=== PATIENT | female | born 1960 | race Caucasian/White ===

== ENCOUNTER → 2016-11-10 | Outpatient (CLI) | payer BC ==
[~2016-11-10] MED LIST: CAL-CITRATE PL1 EACH PO; LEVOTHYROXINE100 MC1 PO; NORCO 325 MG-51 TA1 PO; PEPCID 20MG TAB20 MG PO
== END ==
LOC: MAMMO 14:59
DX: Z12.31 Encounter for screening mammogram for malignant neoplasm of breast (principal)
CPT/HCPCS: G0202

== ENCOUNTER → 2016-11-15 | Outpatient (CLI) | payer BC | LOC: LAB 07:59 | DX: Z01.419 Encounter for gynecological examination (general) (routine) without abnormal findings (principal); L71.8 Other rosacea; F33.2 Major depressive disorder, recurrent severe without psychotic features; E03.4 Atrophy of thyroid (acquired) ==

== ENCOUNTER 2016-11-29 06:31 | Emergency (ER) | payer BC ==
[~2016-11-29] VITALS: Ht 162.6 cm; Wt 88.6 kg
[2016-11-29] MEDS ORDERED: LEVOTHYROXINE100 MC1 PO (06:44)
[2016-11-29] MEDS ORDERED: CAL-CITRATE PL1 EACH PO (06:45)
[2016-11-29] MEDS ORDERED: PEPCID 20MG TAB20 MG PO (06:45)
[2016-11-29] MEDS ORDERED: NORCO 325 MG-51 TA1 PO (08:18)
[2016-11-29 08:32] VITALS: BP 115/71
== END 2016-11-29 08:30 | disposition home or self-care (01) ==
LOC: ED 06:31
DX: S96.212A Strain of intrinsic muscle and tendon at ankle and foot level, left foot, initial encounter (principal)

== ENCOUNTER → 2017-02-25 | Outpatient (CLI) | payer BC | LOC: LAB 07:52 | DX: E03.4 Atrophy of thyroid (acquired) (principal) ==

== ENCOUNTER → 2019-07-10 | Outpatient (CLI) | payer BC | LOC: RAD 08:31 | DX: S22.43XA Multiple fractures of ribs, bilateral, initial encounter for closed fracture (principal); W19.XXXA Unspecified fall, initial encounter ==

== ENCOUNTER → 2020-02-08 | Outpatient (CLI) | payer BC ==
[2020-02-08 11:28] LABS: POTASSIUM 4.3 mmol/L (3.5-5.1)
[2020-02-08 11:29] LABS: ALBUMIN 4.3 g/dL (3.5-5.0)
[2020-02-08 11:30] LABS: CALCIUM 9.7 mg/dL (8.3-10.5)
[2020-02-08 11:31] LABS: TOTAL PROTEIN 7.4 g/dL (6.4-8.3)
[2020-02-08 11:33] LABS: TOTAL BILIRUBIN 0.8 mg/dL (0.2-1.2)
[2020-02-08 11:44] LABS: EOS # 0.2 (0.04-0.40); HEMOGLOBIN 13.6 g/dL (12.5-16.0); LYMPH# 1.5 (1.50-4.00); MEAN CELL VOLUME 90 fl (78-100); MEAN CORPUSCULAR HEMOGLOBIN 29 pg (27-31); MEAN CORPUSCULAR HGB CONC 32 g/dL (33-37); MEAN PLATELET VOLUME 9.5 fl (7.4-10.4); MONO # 0.5 (0.20-0.80); NEU # 2.9 (1.40-6.50); PLATELET COUNT 285 K/mm3 (130-400); RED BLOOD COUNT 4.69 M/mm3 (4.10-5.30); RED CELL DISTRIBUTION WIDTH 13.6 % (11.5-14.5)
== END ==
LOC: LAB 11:06
PROVIDERS: Physician Assistant
DX: Z12.31 Encounter for screening mammogram for malignant neoplasm of breast (principal); Z13.820 Encounter for screening for osteoporosis; R22.1 Localized swelling, mass and lump, neck; E03.9 Hypothyroidism, unspecified; K21.9 Gastro-esophageal reflux disease without esophagitis; G47.33 Obstructive sleep apnea (adult) (pediatric)

== ENCOUNTER → 2020-02-13 | Outpatient (CLI) | payer BC | LOC: MAMMO 12:47 → RAD 13:00 → MAMMO 13:45 | DX: Z12.31 Encounter for screening mammogram for malignant neoplasm of breast (principal); Z13.220 Encounter for screening for lipoid disorders; E03.9 Hypothyroidism, unspecified; R22.1 Localized swelling, mass and lump, neck; K21.9 Gastro-esophageal reflux disease without esophagitis; G47.33 Obstructive sleep apnea (adult) (pediatric) ==

== ENCOUNTER → 2020-02-18 | Outpatient (CLI) | payer BC | LOC: RAD 07:08 | DX: E04.1 Nontoxic single thyroid nodule (principal) ==

== ENCOUNTER → 2020-11-25 | Outpatient (CLI) | payer BC ==
[2020-11-25 10:19] LABS: BASO # 0.02 (0.02-0.10); EOS # 0.11 (0.04-0.40); EOS % 2.4 % (1.0-5.0); HEMATOCRIT 39.9 % (37.0-47.0); HEMOGLOBIN 13.1 g/dL (12.5-16.0); LYMPH# 1.28 (1.50-4.00); MEAN CELL VOLUME 87 fl (78-100); MEAN CORPUSCULAR HEMOGLOBIN 29 pg (27-31); MEAN CORPUSCULAR HGB CONC 33 g/dL (33-37); MEAN PLATELET VOLUME 9.1 fl (7.4-10.4); MONO # 0.34 (0.20-0.80); NEU # 2.82 (1.40-6.50); PLATELET COUNT 247 K/mm3 (130-400); RED BLOOD COUNT 4.59 M/mm3 (4.10-5.30); RED CELL DISTRIBUTION WIDTH 12.9 % (11.5-14.5); WHITE BLOOD COUNT 4.6 K/mm3 (4.8-10.8)
[2020-11-25 10:27] LABS: POTASSIUM 4.2 mmol/L (3.5-5.1)
[2020-11-25 10:28] LABS: ALBUMIN 4.2 g/dL (3.5-5.0)
[2020-11-25 10:29] LABS: CALCIUM 9.6 mg/dL (8.3-10.5)
[2020-11-25 10:30] LABS: TOTAL PROTEIN 6.9 g/dL (6.4-8.3)
[2020-11-25 10:32] LABS: TOTAL BILIRUBIN 0.8 mg/dL (0.2-1.2)
== END ==
LOC: RAD 09:55
PROVIDERS: Physician Assistant
DX: M43.16 Spondylolisthesis, lumbar region (principal)

== ENCOUNTER 2020-12-08 10:03 | Outpatient (RCR) | payer BC | END 2021-03-08 | disposition home or self-care (01) | LOC: PT | DX: M54.5 Low back pain (principal) ==

== ENCOUNTER → 2021-01-22 | Day surgery (SDC) | payer BC | LOC: MSO 07:17 | DX: Z12.11 Encounter for screening for malignant neoplasm of colon (principal); K21.9 Gastro-esophageal reflux disease without esophagitis; C73 Malignant neoplasm of thyroid gland; E89.0 Postprocedural hypothyroidism; F32.9 Major depressive disorder, single episode, unspecified; E66.9 Obesity, unspecified; Z79.890 Hormone replacement therapy; Z79.899 Other long term (current) drug therapy | CPT/HCPCS: 00812; J2704; J3010; J7120 ==

== ENCOUNTER → 2021-03-13 | Outpatient (CLI) | payer BC | LOC: LAB 09:39 | DX: E03.9 Hypothyroidism, unspecified (principal) ==

== ENCOUNTER → 2021-04-07 | Outpatient (CLI) | payer BC ==
[2021-04-07 10:25] LABS: BASO # 0.04 K/mm3 (0.02-0.10); EOS # 0.12 K/mm3 (0.04-0.40); EOS % 2.4 % (1.0-5.0); HEMATOCRIT 41.6 % (37.0-47.0); HEMOGLOBIN 13.4 g/dL (12.5-16.0); LYMPH# 1.37 K/mm3 (1.50-4.00); MEAN CELL VOLUME 90 fl (78-100); MEAN CORPUSCULAR HEMOGLOBIN 29 pg (27-31); MEAN CORPUSCULAR HGB CONC 32 g/dL (33-37); MONO # 0.35 K/mm3 (0.20-0.80); NEU # 3.07 K/mm3 (1.40-6.50); PLATELET COUNT 273 K/mm3 (130-400); RED BLOOD COUNT 4.64 M/mm3 (4.10-5.30); RED CELL DISTRIBUTION WIDTH 13.5 % (11.5-14.5)
[2021-04-07 10:46] LABS: ALBUMIN 4.2 g/dL (3.5-5.0); POTASSIUM 4.4 mmol/L (3.5-5.1)
[2021-04-07 10:48] LABS: TOTAL PROTEIN 7.3 g/dL (6.4-8.3)
[2021-04-07 10:50] LABS: TOTAL BILIRUBIN 0.8 mg/dL (0.2-1.2)
[2021-04-07 10:51] LABS: PARTIAL THROMBOPLASTIN TIME 28.2 SECONDS (21.0-32.0); PROTHROMBIN TIME 9.5 SECONDS (9.0-12.0)
== END ==
LOC: LAB 08:50 → RAD 08:50
PROVIDERS: Physician Assistant
DX: Z01.818 Encounter for other preprocedural examination (principal)

== ENCOUNTER → 2021-04-29 | Day surgery (SDC) | payer BC | END | disposition home or self-care (01) | LOC: MSO 09:42 | DX: H25.13 Age-related nuclear cataract, bilateral (principal); E03.9 Hypothyroidism, unspecified; G47.33 Obstructive sleep apnea (adult) (pediatric); K21.9 Gastro-esophageal reflux disease without esophagitis; Z85.850 Personal history of malignant neoplasm of thyroid; Z79.890 Hormone replacement therapy; Z79.899 Other long term (current) drug therapy | CPT/HCPCS: 00142; J0171; J2250; V2632 ==

== ENCOUNTER → 2021-06-16 | Outpatient (CLI) | payer BC | LOC: MAMMO 13:41 | DX: Z12.31 Encounter for screening mammogram for malignant neoplasm of breast (principal) ==

== ENCOUNTER → 2021-11-11 | Outpatient (CLI) | payer BC ==
[2021-11-11 08:52] LABS: BASO # 0.02 K/mm3 (0.02-0.10); EOS # 0.12 K/mm3 (0.04-0.40); EOS % 1.8 % (1.0-5.0); HEMATOCRIT 40.6 % (37.0-47.0); HEMOGLOBIN 13.2 g/dL (12.5-16.0); LYMPH# 1.24 K/mm3 (1.50-4.00); MEAN CELL VOLUME 89 fl (78-100); MEAN CORPUSCULAR HEMOGLOBIN 29 pg (27-31); MEAN CORPUSCULAR HGB CONC 33 g/dL (33-37); MONO # 0.58 K/mm3 (0.20-0.80); NEU # 4.64 K/mm3 (1.40-6.50); PLATELET COUNT 276 K/mm3 (130-400); RED BLOOD COUNT 4.55 M/mm3 (4.10-5.30); RED CELL DISTRIBUTION WIDTH 12.9 % (11.5-14.5); WHITE BLOOD COUNT 6.6 K/mm3 (4.8-10.8)
[2021-11-11 08:56] LABS: POTASSIUM 4.5 mmol/L (3.5-5.1)
[2021-11-11 08:57] LABS: ALBUMIN 4.3 g/dL (3.5-5.0)
[2021-11-11 08:58] LABS: CALCIUM 10.1 mg/dL (8.3-10.5)
[2021-11-11 08:59] LABS: TOTAL PROTEIN 7.4 g/dL (6.4-8.3)
[2021-11-11 09:01] LABS: TOTAL BILIRUBIN 0.9 mg/dL (0.2-1.2)
[2021-11-12 00:09] LABS: T3 TOTAL 83 ng/dL (35-193)
== END ==
LOC: LAB 08:24
PROVIDERS: Physician Assistant
DX: Z00.00 Encounter for general adult medical examination without abnormal findings (principal); Z13.1 Encounter for screening for diabetes mellitus; K90.9 Intestinal malabsorption, unspecified; E03.9 Hypothyroidism, unspecified; K21.9 Gastro-esophageal reflux disease without esophagitis; G47.33 Obstructive sleep apnea (adult) (pediatric); Z85.850 Personal history of malignant neoplasm of thyroid

== ENCOUNTER → 2022-05-17 | Outpatient (CLI) | payer BC | LOC: AMSURD 10:05 | DX: Z01.818 Encounter for other preprocedural examination (principal) ==

== ENCOUNTER → 2022-07-30 | Outpatient (CLI) | payer BC | LOC: LAB 08:57 | DX: E04.1 Nontoxic single thyroid nodule (principal); C73 Malignant neoplasm of thyroid gland ==

== ENCOUNTER → 2023-05-04 | Outpatient (CLI) | payer BC | LOC: MAMMO 09:03 | DX: Z12.39 Encounter for other screening for malignant neoplasm of breast (principal); Z13.820 Encounter for screening for osteoporosis ==

== ENCOUNTER → 2024-02-23 | Outpatient (CLI) | payer BC ==
[2024-02-23 10:10] LABS: BASO # 0.01 K/mm3 (0.02-0.10); EOS # 0.12 K/mm3 (0.04-0.40); EOS % 2.4 % (1.0-5.0); HEMATOCRIT 42.9 % (37.0-47.0); HEMOGLOBIN 13.9 g/dL (12.5-16.0); LYMPH# 1.07 K/mm3 (1.50-4.00); MEAN CELL VOLUME 90 fl (78-100); MEAN CORPUSCULAR HEMOGLOBIN 29 pg (27-31); MEAN CORPUSCULAR HGB CONC 32 g/dL (33-37); MEAN PLATELET VOLUME 9.2 fl (7.4-10.4); MONO # 0.44 K/mm3 (0.20-0.80); NEU # 3.29 K/mm3 (1.40-6.50); PLATELET COUNT 263 K/mm3 (130-400); RED BLOOD COUNT 4.77 M/mm3 (4.10-5.30); RED CELL DISTRIBUTION WIDTH 13.1 % (11.5-14.5)
[2024-02-23 10:15] LABS: ALBUMIN 4.2 g/dL (3.4-4.8); SODIUM 142 mmol/L (136-145)
[2024-02-23 10:16] LABS: CALCIUM 9.7 mg/dL (8.3-10.5)
[2024-02-23 10:17] LABS: GLUCOSE 76 mg/dL (65-105); TOTAL PROTEIN 6.9 g/dL (6.2-8.1)
[2024-02-23 10:18] LABS: CARBON DIOXIDE 26 mmol/L (23-31)
[2024-02-23 10:19] LABS: TOTAL BILIRUBIN 0.6 mg/dL (0.2-1.2)
[2024-02-23 10:23] LABS: AST-SGOT 16 U/L (5-34)
[2024-02-23 10:24] LABS: ALT/SGPT 14 U/L (0-55)
[2024-02-23 10:39] LABS: TROPONIN-I < 0.030 ng/mL (0.00-0.033)
== END ==
LOC: RAD 09:39
PROVIDERS: Physician Assistant
DX: R91.8 Other nonspecific abnormal finding of lung field (principal); R00.2 Palpitations

== ENCOUNTER → 2024-04-03 | Outpatient (CLI) | payer BC | LOC: RAD 10:09 | DX: M25.562 Pain in left knee (principal) ==

== ENCOUNTER → 2024-08-16 | Outpatient (CLI) | payer BC ==
[2024-08-16 08:29] LABS: BASO # 0.01 K/mm3 (0.02-0.10); EOS # 0.08 K/mm3 (0.04-0.40); EOS % 1.9 % (1.0-5.0); HEMATOCRIT 41.8 % (37.0-47.0); HEMOGLOBIN 13.5 g/dL (12.5-16.0); LYMPH# 1.12 K/mm3 (1.50-4.00); MEAN CELL VOLUME 91 fl (78-100); MEAN CORPUSCULAR HEMOGLOBIN 29 pg (27-31); MEAN CORPUSCULAR HGB CONC 32 g/dL (33-37); MONO # 0.35 K/mm3 (0.20-0.80); NEU # 2.71 K/mm3 (1.40-6.50); PLATELET COUNT 252 K/mm3 (130-400); RED CELL DISTRIBUTION WIDTH 12.9 % (11.5-14.5); WHITE BLOOD COUNT 4.3 K/mm3 (4.8-10.8)
[2024-08-16 08:45] LABS: ALBUMIN 4.4 g/dL (3.4-4.8)
[2024-08-16 08:46] LABS: CALCIUM 9.7 mg/dL (8.3-10.5)
[2024-08-16 08:47] LABS: TOTAL PROTEIN 7.3 g/dL (6.2-8.1)
[2024-08-16 08:49] LABS: TOTAL BILIRUBIN 0.8 mg/dL (0.2-1.2)
== END ==
LOC: LAB 08:15
PROVIDERS: Physician Assistant
DX: M25.511 Pain in right shoulder (principal); R42 Dizziness and giddiness